=== PATIENT | female | born 1965 | race Caucasian/White ===

== ENCOUNTER 2022-05-30 11:10 | Emergency (ER) | payer OTHER ==
[~2022-05-30] VITALS: Ht 162.6 cm; Wt 6.8 kg
[2022-05-30 11:26] VITALS: BP 142/67
--- NOTE | 2022-05-30 11:51 | NUR ---
PATIENT LEFT WITHOUT BEING SEEN BY DR. HAWKINS. NO FURTHER CARE PROVIDED FOR PATIENT.
== END 2022-05-30 11:51 | disposition left against medical advice (07) ==
LOC: MED 11:10
DX: R73.9 Hyperglycemia, unspecified (principal); Z53.21 Procedure and treatment not carried out due to patient leaving prior to being seen by health care provider

== ENCOUNTER 2022-06-12 11:11 | Emergency (ER) | payer OTHER ==
[~2022-06-12] VITALS: Ht 162.6 cm; Wt 97.5 kg
[2022-06-12 11:27] VITALS: BP 119/65
--- NOTE | 2022-06-12 11:33 | NUR ---
PT AMBULATED TO BED 12
--- NOTE | 2022-06-12 11:45 | NUR ---
56F presents to ED with c/o SOB since this morning. Pt reports using pulse oximeter at home and it read 88%, feeling dizzy/lightheaded and "tight" head pain. Upon assessment pt denied head pain, O2 sat 96% on room air. Pt used Rx oxygen at home with relief of symptoms. Pt denies using inhaler or nebulizer, and states "they don't help." Pt denies chest pain, cough, fevers, chills, N/V/D. Pt placed on bedside cafeteria assistant.
--- NOTE | 2022-06-12 12:29 | NUR ---
Patient discharged with v/s stable. Written and verbal after care instructions about COPD and dizziness given and explained. Patient verbalized understanding. Ambulatory with steady gait. All questions addressed prior to discharge. Advised to follow up with PMD.
== END 2022-06-12 12:29 | disposition home or self-care (01) ==
LOC: MED 11:11
DX: J44.9 Chronic obstructive pulmonary disease, unspecified (principal); E11.9 Type 2 diabetes mellitus without complications; I10 Essential (primary) hypertension; Z87.891 Personal history of nicotine dependence
CPT/HCPCS: 93005; 99283